=== PATIENT | female | born 1980 | race African-American/Black ===

== ENCOUNTER 2019-04-09 15:01 | Emergency (ER) | payer OTHER ==
[2019-04-09] MEDS: NALOXONE 2 MG SYG IV (15:53)
== END 2019-04-09 22:01 | disposition home or self-care (01) ==
LOC: E/R 15:01
DX: R41.82 Altered mental status, unspecified (principal); I10 Essential (primary) hypertension; E03.9 Hypothyroidism, unspecified; R40.2132 Coma scale, eyes open, to sound, at arrival to emergency department; R40.2242 Coma scale, best verbal response, confused conversation, at arrival to emergency department; R40.2362 Coma scale, best motor response, obeys commands, at arrival to emergency department; I95.9 Hypotension, unspecified; T22.012A Burn of unspecified degree of left forearm, initial encounter; X19.XXXA Contact with other heat and hot substances, initial encounter; Y92.9 Unspecified place or not applicable; Z87.891 Personal history of nicotine dependence; Z79.84 Long term (current) use of oral hypoglycemic drugs
CPT/HCPCS: 80164; 80178; 82962; 96374; 99284-25